=== PATIENT | female | born 1995 | race Caucasian/White ===

== ENCOUNTER 2024-03-31 07:21 | Outpatient (CLI) | payer BC | END 2024-03-31 07:22 | disposition home or self-care (01) | LOC: BICMRI 07:21 | PROVIDERS: ATTEND Internal Medicine Rheumatology | DX: M05.79 Rheumatoid arthritis with rheumatoid factor of multiple sites without organ or systems involvement (principal); S61.451S Open bite of right hand, sequela; S62.322A Displaced fracture of shaft of third metacarpal bone, right hand, initial encounter for closed fracture ==